=== PATIENT | male | born 1995 | race Caucasian/White ===

== ENCOUNTER 2025-01-09 14:45 | Emergency (ER) | payer SELFPAY ==
[2025-01-09 14:51] VITALS: BP 141/92; PULSE 100; TEMP 36.6; O2SAT 100; BMI 19.0
--- NOTE | 2025-01-09 15:04 | ED_ITS ---
HPI HPI - General Adult General Chief complaint: Extremity Injury, Lower Stated complaint: FELL SKATING, HURT KNEE Time Seen by Provider: 01/09/25 15:04 Source: patient Mode of arrival: walk-in History of Present Illness HPI narrative: Patient is a 29-year-old male who is presenting to the ER today with chief complaint of left knee pain. Patient stated that late Sunday night, he was involved in a skateboard accident. Patient fell off his skateboard doing stunts. Patient does not take blood thinners. No head injury. Patient has no headache or neck pain. No chest pain or shortness of breath. No abdominal pain nausea or vomiting. Patient went to [facility] 2 days ago, had a x-ray of his left knee that showed no acute findings. Patient was not sent home with any splint, he was told to buy an [id number] knee brace. Patient was told to follow-up with Dr. Chaney who has retired. Patient does work in a restaurant, patient flies around at work moving quickly. Patient concerned about working starting on Sunday. Patient is off Sunday. All systems are negative except as noted/marked. All systems reviewed and otherwise negative. Nurses note and vital signs reviewed and patient is not hypoxic. General: The patient appears well and in no apparent distress. Patient is resting comfortably on cart. Patient is not toxic, lethargic, or listless Skin: Warm, dry, no pallor noted. There is no rash noted. No petechiae, purpura. Head: Normocephalic, atraumatic Eye: Normal conjunctiva, no drainage, EOMI. PERRL Ears, Nose, Mouth, and Throat: oral mucosa is moist. Extremely poor dentition, no periapical abscess, no signs of ANUG, gingivitis, or acute infection. Nares patent. Mouth without vesicles. Cardiovascular: Regular Rate and Rhythm, no murmur, gallop, rub Respiratory: Patient is in no distress, no accessory muscle use, lungs are clear to auscultation, no wheezing, rales or rhonchi Back: non-tender, GI: no tenderness Musculoskeletal: Patient has full range of motion of all of the extremities except to the left knee. Patient has negative anterior posterior drawer sign. Patient does have moderate pain with varus stress, mild pain with valgus stress. No rash. No tenderness palpation to the patella. Patient has mild to moderate pain with active range of motion of flexion extension, patient does have full flexion extension with no significant difficulty. No motor, sensory, or focal neurological deficits Neurological: A&O x4, normal speech Psychiatric: Cooperative Related Data Home Medications ?Medication ?Instructions ?Recorded ?Confirmed methocarbamol 500 mg tablet 500 mg PO BID PRN muscle s pasm 01/09/25 01/09/25 Allergies Allergy/AdvReac Type Severity Reaction Status Date / Time No Known Drug Allergies Allergy Verified 01/09/25 14:57 PFSH PFSH Social History Little interest or pleasure in doing things: not at all Feeling down, depressed, or hopeless: not at all Exam Constitutional Vital Signs, click to edit/add: Last Vital Signs Temp 97.9 F 01/09/25 14:51 Pulse 100 H 01/09/25 14:51 Resp 18 01/09/25 14:51 BP 141/92 H 01/09/25 14:51 Pulse Ox 100 01/09/25 14:51 Course Vital Signs Vital signs: Vital Signs Temperature 97.9 F 01/09/25 14:51 Pulse Rate 100 H 01/09/25 14:51 Respiratory Rate 18 01/09/25 14:51 Blood Pressure 141/92 H 01/09/25 14:51 Pulse Oximetry 100 01/09/25 14:51 Temperature 97.9 F 01/09/25 14:51 Pulse Rate 100 H 01/09/25 14:51 Respiratory Rate 18 01/09/25 14:51 Blood Pressure 141/92 H 01/09/25 14:51 Pulse Oximetry 100 01/09/25 14:51 Medical Decision Making [facility] Narrative Medical decision making narrative: Patient seen and examined: Patient had an x-ray done at [facility] after the injury. Differential diagnosis includes but is not limited to: Left knee pain, left knee sprain, left knee internal derangement. Left meniscus tear. Reevaluation: Patient was placed in a left knee immobilizer. Splint was assisted with . the patient was neurovascularly intact before and after the splint was placed. the affected bones/injured area had proper alignment in a splint. Education on splint care at home was given at bedside. Patient and family have no questions at discharge. Shared decision making: I discussed with the patient the necessary laboratory findings and radiological findings. Social barriers to healthcare: There are no food insecurities, there is no issue with transportation, there are no insurance barriers. Disposition: I discussed with the patient following up with Dr. Wheeler. Patient was given a knee immobilizer. Patient states he has crutches at home. Education was done on ice, alternating Tylenol Motrin for pain. Patient was given a work note. Patient is off of Sunday and Sunday. Patient will follow- up with PCP if needed, the patient understands importance of seeing orthopedic surgery and patient is very thankful for following up with orthopedic surgery on Sunday. No question at discharge. Has appointment 11:00. Discharge Plan Discharge Stand Alone Forms: Work/School Release Chief Complaint: Extremity Injury, Lower Clinical Impression: Acute internal derangement of left knee Patient Disposition: Home, Self-Care Time of Disposition Decision: 16:14 Condition: Fair Prescriptions / Home Meds: No Action methocarbamol 500 mg tablet 500 mg PO BID PRN (Reason: muscle spasm) Print Language: Turkmen Instructions: Knee Sprain (ED), Knee Immobilizer (ED), Meniscus Tear (ED) Additional Instructions: Education on knee injury, knee sprain, meniscus tear was given to you for educational purposes only. I am not diagnosing you with a knee sprain or meniscal tear today. Follow-up with Dr. Wheeler at 1100AM. Use ice 20 minutes on, 20 minutes off, do not use heat. Alternate Tylenol and either Motrin, Advil, or ibuprofen every 4 hours to help with pain. Maximum dose of Tylenol is 3000 mg a day. Maximum dose of either Motrin, Advil, or ibuprofen is 2400 mg a day. Work note given Referrals: Physician,Non-Staff, MD [Primary Care Provider] - 1 week Francisco Wheeler MD [Physician, Orthopedics] - 1 week
--- NOTE | 2025-01-09 15:33 | PC.NURSE ---
Pain to left knee, no redness, swelling or bruising present. Ice applied to left knee.
== END 2025-01-09 16:53 | disposition home or self-care (01) ==
PROVIDERS: Emergency Provider Emergency Medicine
DX: M23.92 Unspecified internal derangement of left knee (principal)
CPT/HCPCS: 99283